=== PATIENT | male | born 1940 | race Caucasian/White ===

== ENCOUNTER 2017-10-21 05:51 | Inpatient (IN) | payer MEDICARE, OTHER ==
[2017-10-21 06:30] LABS: ADD MAN DIFF? NO
[2017-10-21 06:42] LABS: WHITE BLOOD COUNT 8.1 10^3/ul (4.8-10.8)
[2017-10-21 06:42] LABS: BASOPHIL # 0.1 10^3/ul (0.0-0.1); BASOPHILS % 0.6 % (0.0-2.0); EOSINOPHILS # 0.1 10^3/ul (0.0-0.5); EOSINOPHILS % 1.1 % (0.0-7.0); HEMATOCRIT 42.1 % (42.0-52.0); HEMOGLOBIN 14.5 g/dl (14.0-18.0); IMMATURE GRANS #M 0.08 10^3/ul; LYMPHOCYTES # 2.1 10^3/ul (0.8-2.9); LYMPHOCYTES % 26.2 % (15.0-51.0); MEAN CORPUSCULAR HGB CONC 34.4 g/dl (32.0-37.0); MEAN CORPUSCULAR VOLUME 92.9 fl (82.0-101.0); MEAN PLATELET VOLUME 9.3 fl (7.4-10.4); MONOCYTE # 0.6 10^3/ul (0.3-0.9); MONOCYTES % 7.7 % (0.0-11.0); NEUTROPHIL # 5.1 10^3/ul (1.6-7.5); NEUTROPHILS % 63.4 % (39.0-77.0); PLATELET COUNT 224 10^3/UL (140-415); RED BLOOD COUNT 4.53 10^6/ul (4.70-6.10); RED CELL DISTRIBUTION WIDTH 13.7 % (11.5-14.5)
[2017-10-21 07:01] LABS: INR 2.14; PROTIME 24.4 Sec (11.9-14.9); PT RATIO 1.9
[2017-10-21 07:03] LABS: ALANINE AMINOTRANSFERASE 16 IU/L (13-69); ALBUMIN 4.2 g/dl (3.3-4.9); ALBUMIN/GLOBULIN RATIO 1.35; ALKALINE PHOSPHATASE 49 IU/L (42-121); ANION GAP 16 (8-16); ASPARTATE AMINO TRANSFERASE 23 IU/L (15-46); BILIRUBIN,INDIRECT 1.2 mg/dl (0-1.1); BILIRUBIN,TOTAL 1.2 mg/dl (0.2-1.3); BLOOD UREA NITROGEN 21 mg/dl (7-20); CALCIUM 9.5 mg/dl (8.4-10.2); CARBON DIOXIDE 23 mmol/L (21-31); CHLORIDE 107 mmol/L (97-110); CREATININE 1.03 mg/dl (0.61-1.24); GLUCOSE 103 mg/dl (70-220); POTASSIUM 4.2 mmol/L (3.5-5.1); SODIUM 142 mmol/L (135-144); TOTAL PROTEIN 7.3 g/dl (6.1-8.1)
[2017-10-21 07:08] LABS: PARTIAL THROMBOPLASTIN TIME 43.9 Sec (25.0-35.0)
[2017-10-21] MEDS ORDERED: FENTAnyl 50 MCG/ML VIAL (09:25)
[2017-10-21] MEDS ORDERED: IODIXANOL LOCM 100 ML BTL ×2 (09:25→11:11)
[2017-10-21] MEDS ORDERED: VERAPAMIL 5 MG INJ (09:26)
[2017-10-21] MEDS ORDERED: NITROGLYCERIN (IC) 100 MCG/ML INJ ×2 (09:26→11:12)
[2017-10-21] MEDS ORDERED: MIDAZOLAM 1 MG/ML 2 ML INJ (09:26)
[2017-10-21] MEDS ORDERED: BIVALIRUDIN 250MG /NS 50 ML 50 ML IVPB (10:50)
[2017-10-21] MEDS ORDERED: CLOPIDOGREL 300 MG TAB (10:50)
[2017-10-21] MEDS ORDERED: ASPIRIN 325 MG TAB (10:56)
[2017-10-21] MEDS ORDERED: IOHEXOL 350MG/ML 50 ML BTL (11:11)
[2017-10-21] MEDS: POTASSIUM CHLORIDE (SR) 20 MEQ TAB PO (20:56)
[2017-10-21] MEDS: MAGNESIUM OXIDE 400 MG TAB PO (20:56)
[2017-10-21] MEDS: ATORVASTATIN 40 MG TAB PO (20:57)
[2017-10-21] MEDS ORDERED: EPLERENONE 50 MG PO (21:00)
[2017-10-22 06:42] LABS: ADD MAN DIFF? NO
[2017-10-22 06:48] LABS: WHITE BLOOD COUNT 8.4 10^3/ul (4.8-10.8)
[2017-10-22 06:48] LABS: BASOPHIL # 0.1 10^3/ul (0.0-0.1); BASOPHILS % 0.6 % (0.0-2.0); EOSINOPHILS # 0.1 10^3/ul (0.0-0.5); HEMATOCRIT 42.3 % (42.0-52.0); HEMOGLOBIN 14.5 g/dl (14.0-18.0); IMMATURE GRANS #M 0.07 10^3/ul; IMMATURE GRANS % (M) 0.8 %; LYMPHOCYTES # 1.8 10^3/ul (0.8-2.9); LYMPHOCYTES % 21.1 % (15.0-51.0); MEAN CORPUSCULAR HEMOGLOBIN 32.1 pg (29.0-33.0); MEAN CORPUSCULAR HGB CONC 34.3 g/dl (32.0-37.0); MEAN CORPUSCULAR VOLUME 93.6 fl (82.0-101.0); MEAN PLATELET VOLUME 9.1 fl (7.4-10.4); MONOCYTE # 0.7 10^3/ul (0.3-0.9); MONOCYTES % 8.5 % (0.0-11.0); NEUTROPHIL # 5.7 10^3/ul (1.6-7.5); PLATELET COUNT 218 10^3/UL (140-415); RED BLOOD COUNT 4.52 10^6/ul (4.70-6.10); RED CELL DISTRIBUTION WIDTH 13.9 % (11.5-14.5)
[2017-10-22 07:10] LABS: ALANINE AMINOTRANSFERASE 26 IU/L (13-69); ALBUMIN 3.8 g/dl (3.3-4.9); ALBUMIN/GLOBULIN RATIO 1.31; ALKALINE PHOSPHATASE 48 IU/L (42-121); ANION GAP 15 (8-16); ASPARTATE AMINO TRANSFERASE 22 IU/L (15-46); BILIRUBIN,INDIRECT 1.1 mg/dl (0-1.1); BILIRUBIN,TOTAL 1.1 mg/dl (0.2-1.3); BLOOD UREA NITROGEN 17 mg/dl (7-20); CARBON DIOXIDE 23 mmol/L (21-31); CHLORIDE 107 mmol/L (97-110); CREATININE 0.82 mg/dl (0.61-1.24); GLUCOSE 100 mg/dl (70-220); SODIUM 141 mmol/L (135-144); TOTAL PROTEIN 6.7 g/dl (6.1-8.1)
[2017-10-22] MEDS: CLOPIDOGREL 75 MG TAB PO ×2 (09:00→11:30)
[2017-10-22] MEDS: LANSOPRAZOLE 30 MG CAP PO ×2 (09:00→11:31)
[2017-10-22] MEDS: POTASSIUM CHLORIDE (SR) 20 MEQ TAB PO ×3 (09:00→20:47)
[2017-10-22] MEDS ORDERED: ATORVASTATIN 20 MG TAB PO (09:00)
[2017-10-22] MEDS: ASPIRIN 81 MG TAB PO ×2 (09:00)
[2017-10-22] MEDS ORDERED: DILTIAZEM PO (09:00)
[2017-10-22] MEDS: DILTIAZEM (CD) 180 MG CAP PO ×2 (09:00→11:31)
[2017-10-22] MEDS ORDERED: IODIXANOL LOCM 100 ML BTL (14:08)
[2017-10-22] MEDS ORDERED: LIDOCAINE 1% (MDV) 20 ML INJ (14:08)
[2017-10-22] MEDS ORDERED: HEPARIN 1000 UNITS/ML 10 ML INJ (14:08)
[2017-10-22] MEDS ORDERED: FENTAnyl 50 MCG/ML VIAL (14:09)
[2017-10-22] MEDS ORDERED: NITROGLYCERIN (IC) 100 MCG/ML INJ (14:09)
[2017-10-22] MEDS ORDERED: MIDAZOLAM 1 MG/ML 2 ML INJ (14:09)
[2017-10-22] MEDS ORDERED: IOHEXOL 350MG/ML 50 ML BTL (14:11)
[2017-10-22] MEDS ORDERED: SOD CHLORIDE 0.9% 500 ML (14:11)
[2017-10-22] MEDS ORDERED: BIVALIRUDIN 250MG /NS 50 ML 50 ML IVPB (14:56)
[2017-10-22] MEDS: [UNRECOGNIZED DRUG - REMARK] XX ×2 (15:30→23:30)
[2017-10-22] MEDS: MAGNESIUM OXIDE 400 MG TAB PO (20:47)
[2017-10-22] MEDS: ATORVASTATIN 40 MG TAB PO (20:47)
[2017-10-23 06:46] LABS: ADD MAN DIFF? NO
[2017-10-23 06:55] LABS: WHITE BLOOD COUNT 8.3 10^3/ul (4.8-10.8)
[2017-10-23 06:55] LABS: BASOPHIL # 0.1 10^3/ul (0.0-0.1); BASOPHILS % 0.7 % (0.0-2.0); EOSINOPHILS # 0.1 10^3/ul (0.0-0.5); EOSINOPHILS % 1.4 % (0.0-7.0); HEMOGLOBIN 13.8 g/dl (14.0-18.0); IMMATURE GRANS #M 0.08 10^3/ul; LYMPHOCYTES # 1.6 10^3/ul (0.8-2.9); LYMPHOCYTES % 19.3 % (15.0-51.0); MEAN CORPUSCULAR HEMOGLOBIN 31.8 pg (29.0-33.0); MEAN CORPUSCULAR HGB CONC 33.7 g/dl (32.0-37.0); MEAN CORPUSCULAR VOLUME 94.5 fl (82.0-101.0); MEAN PLATELET VOLUME 9.3 fl (7.4-10.4); MONOCYTE # 0.6 10^3/ul (0.3-0.9); MONOCYTES % 7.7 % (0.0-11.0); NEUTROPHIL # 5.8 10^3/ul (1.6-7.5); NEUTROPHILS % 69.9 % (39.0-77.0); PLATELET COUNT 218 10^3/UL (140-415); RED BLOOD COUNT 4.34 10^6/ul (4.70-6.10); RED CELL DISTRIBUTION WIDTH 13.8 % (11.5-14.5)
[2017-10-23 07:25] LABS: ALANINE AMINOTRANSFERASE 26 IU/L (13-69); ALBUMIN 3.7 g/dl (3.3-4.9); ALBUMIN/GLOBULIN RATIO 1.37; ALKALINE PHOSPHATASE 44 IU/L (42-121); ANION GAP 15 (8-16); ASPARTATE AMINO TRANSFERASE 22 IU/L (15-46); BLOOD UREA NITROGEN 20 mg/dl (7-20); CALCIUM 8.8 mg/dl (8.4-10.2); CARBON DIOXIDE 22 mmol/L (21-31); CHLORIDE 108 mmol/L (97-110); CREATININE 0.85 mg/dl (0.61-1.24); GLUCOSE 103 mg/dl (70-220); POTASSIUM 4.1 mmol/L (3.5-5.1); SODIUM 141 mmol/L (135-144); TOTAL PROTEIN 6.4 g/dl (6.1-8.1)
[2017-10-23] MEDS: [UNRECOGNIZED DRUG - REMARK] XX (07:30)
[2017-10-23] MEDS: CLOPIDOGREL 75 MG TAB PO (08:16)
[2017-10-23] MEDS: POTASSIUM CHLORIDE (SR) 20 MEQ TAB PO (08:16)
[2017-10-23] MEDS: ASPIRIN 81 MG TAB PO (08:16)
[2017-10-23] MEDS: DILTIAZEM (CD) 180 MG CAP PO (08:17)
[2017-10-23] MEDS: LANSOPRAZOLE 30 MG CAP PO (08:27)
== END 2017-10-23 14:35 | disposition home health service (06) | DRG 247 ==
LOC: SDS 05:51 → ICU 10-22 15:45 → TEL 11:34 → ICU 12:50 → TEL 10-22 19:01
PROC: 027034Z Dilation of Coronary Artery, One Artery with Drug-eluting Intraluminal Device, Percutaneous Approach (ICD-10-PCS; principal; 2017-10-21 07:30)
PROC: B211YZZ Fluoroscopy of Multiple Coronary Arteries using Other Contrast (ICD-10-PCS; 2017-10-21 07:30)
PROC: 027035Z Dilation of Coronary Artery, One Artery with Two Drug-eluting Intraluminal Devices, Percutaneous Approach (ICD-10-PCS; 2017-10-21 09:15)
DX: I25.110 Atherosclerotic heart disease of native coronary artery with unstable angina pectoris (principal); G47.33 Obstructive sleep apnea (adult) (pediatric); I11.0 Hypertensive heart disease with heart failure; I50.9 Heart failure, unspecified; E26.9 Hyperaldosteronism, unspecified; Z82.49 Family history of ischemic heart disease and other diseases of the circulatory system
CPT/HCPCS: 80053; 85025; 85610; 85730; 87081; 93454